=== PATIENT | female | born 1950 | race Caucasian/White ===

== ENCOUNTER 2017-04-20 06:59 | Inpatient (IN) | payer OTHER ==
[~2017-04-20] VITALS: Ht 149.9 cm; Wt 150.0 kg
[~2017-04-20 06:59] MED LIST: ALEVE220 M2 PO; CENTRUM SILVER1 EAC4 PO; LIPITOR10 MG PO; LO-DOSE ASPIRIN81 M2 PO; LORCET 5-325 M1 EACH PO; METFORMIN HCL500 M4 PO; PROZAC40 MG PO; ZOFRAN4 MG PO
[2017-04-20 07:32] LABS: POINT-OF-CARE METER ID UU14174212
[2017-04-20 07:38] VITALS: BP 113/60; BP 113/69
[2017-04-20 11:05] LABS: POINT-OF-CARE METER ID UU13113675
[2017-04-20 14:56] VITALS: BP 109/63
[2017-04-20 19:29] VITALS: BP 125/58
[2017-04-20 23:15] VITALS: BP 101/59
[2017-04-21 03:27] VITALS: BP 127/62
[2017-04-21 07:47] LABS: HEMATOCRIT 37.5 % (36.0-46.0); MCH 28.7 PG (29.0-34.0); MCHC 32.8 G/DL (30.0-36.0); MCV 87.4 FL (83-99); MEAN PLAT.VOLUME 10.5 uM^3 (9.5-12.4); PLATELET COUNT 249 K/uL (156-360); RBC DIS.WIDTH-CV 13.7 % (11.8-14.6); RBC DIS.WIDTH-SD 43.8 % (39-53); RED BLOOD COUNT 4.29 M/uL (3.80-5.20)
[2017-04-21 07:54] LABS: WHITE BLOOD COUNT 11.2 K/uL (4.1-10.2)
[2017-04-21 08:00] VITALS: BP 131/58
[2017-04-21] MEDS ORDERED: HYDROCODON-ACE1 EAC7 PO (08:02)
[2017-04-21 08:16] LABS: CHLORIDE 101 mEq/L (99-109); POTASSIUM 4.6 mEq/L (3.7-5.4); SODIUM 136 mEq/L (136-147)
[2017-04-21 08:17] LABS: MAGNESIUM 1.9 mg/dL (1.3-2.7)
[2017-04-21 08:18] LABS: GLUCOSE 112 mg/dL (70-99)
[2017-04-21 08:20] LABS: ANION GAP 9 MEQ/L (2-14)
[2017-04-21 08:22] LABS: GFR ESTIMATE (CALCULATED) > 59 mL/min/
[2017-04-21 08:23] LABS: UREA NITROGEN (BUN) 15 mg/dL (9-23)
== END 2017-04-21 10:05 | disposition home or self-care (01) | DRG 621 ==
LOC: 2SOUTH 06:59 → SDC 08:25 → EDSTATUS 08:25 → 2SOUTH 08:28 → 2EAST 14:04
PROVIDERS: Surgery
PROC: 0DB64Z3 Excision of Stomach, Percutaneous Endoscopic Approach, Vertical (ICD-10-PCS; principal; 2017-04-20)
DX: E66.01 Morbid (severe) obesity due to excess calories (principal); E78.5 Hyperlipidemia, unspecified; E11.9 Type 2 diabetes mellitus without complications; Z68.38 Body mass index [BMI] 38.0-38.9, adult; G47.30 Sleep apnea, unspecified; M19.90 Unspecified osteoarthritis, unspecified site; F32.9 Major depressive disorder, single episode, unspecified; Z90.710 Acquired absence of both cervix and uterus
CPT/HCPCS: 80048; 82948; 83735; 84100; 85027; C9113; J0131; J0330; J0690; J1100; J1170; J1644; J1650; J1815; J2250; J2405; J2710; J3010; J3480; J7120; S0020